=== PATIENT | female | born 1950 | race Caucasian/White ===

== ENCOUNTER → 2018-05-02 | Outpatient (CLI) | payer MEDICARE ==
[~2018-05-02] MED LIST: ASPIR 8181 M1 PO; ATENOLOL25 MG PO; CALCIUM 600 MG1 EACH PO; COQ-10100 MG PO; CRESTOR20 MG PO; OMEPRAZOLE40 M1 PO; PERCOCET 5/31 TABLET PO; VITAMIN E400 UNI6 PO; ZESTORETIC 20-1 EAC1 NG; ZETIA10 MG PO
== END | disposition home or self-care (01) ==
LOC: CDC 08:43
DX: Z01.810 Encounter for preprocedural cardiovascular examination (principal); M19.011 Primary osteoarthritis, right shoulder; M25.511 Pain in right shoulder
CPT/HCPCS: 93000